=== PATIENT | male | born 1930 | race Caucasian/White ===

== ENCOUNTER 2017-07-01 20:44 | Emergency (ER) | payer OTHER ==
[~2017-07-01 20:44] MED LIST: 1-ME1LIQ PO; ASPI81TA82 PO; ATOR10TA PO; CAPT100T PO; CITA20TA4 PO; DOXA1 PO; GLIP5 PO; NAPR250T57 PO; PLAV75TA PO
[2017-07-01 20:46] VITALS: BP 205/95; PULSE 92; RESP 18; TEMP 98.4; O2SAT 95
--- NOTE | 2017-07-01 22:02 | RADRPT ---
EXAM DATE/TIME: 07/01/2017 21:13 [facility] COMPARISON: CT THORAX W CONTRAST, September 29, 2015, 14:00. CHEST SINGLE AP, September 30, 2015, 2:55. INDICATIONS : Patient states they had cough and right sided chest pain last night. Complains of still having right sided chest pains. MEDICAL HISTORY : None. SURGICAL HISTORY : None. ENCOUNTER: Initial ACUITY: 3 days PAIN SCORE: 5/10 LOCATION: Right chest FINDINGS: There is a 5 cm medial right upper lung mass. Prior CT in September 2015 had demonstrated a 3 cm spicula juan mass suspicious for malignancy. The remainder of the lungs are clear. The heart is normal in si ze. The central bronchopulmonary markings somewhat limited. Both hemidiaphragms are well delineated . Degenerative changes in the thoracic spine with bridging anterior paravertebral ossification. CONCLUSION: 1. 5 cm right apical mass is larger then on prior CT in 2015, suspicious for malignancy. 2. The remainder of the lungs are clear. No evidence of pneumothorax. Ruben Camejo MD on July 01, 2017 at 21:57 Board Certified Radiologist. This report was verified electronically.
[2017-07-01 22:06] VITALS: BP 157/77; PULSE 67; RESP 18; O2SAT 96
--- NOTE | 2017-07-01 22:25 | PD ---
HPI Chief Complaint: Cold / Flu Symptoms Time Seen by Provider: 22:02 Travel History International Travel<30 days: No Contact w/Intl Traveler<30days: No Traveled to known affect area: No History of Present Illness HPI The patient is a 86-year-old male who presents to the emergency department for cough and pleuritic chest pain. The patient states he developed a cough several days ago, then developed some left-sided pleuritic chest pain was resolved after 24 hours. The patient then awakened 2 nights ago with a coughing spell, developed some right sided chest pain which has been constant. The pain is worse with lying supine, slightly improved with sitting upright, but not exacerbated by coughing or inspiration. He does note the cough is mostly dry nonproductive. He denies any known history of lung carcinoma, does have remote history of tobacco use. The patient denies any fever, chills, sweats, or weight loss. He denies any associated nausea, vomiting, abdominal pain, or diaphoresis. He denies any exertional shortness of breath. PFSH Past Medical History Hx Anticoagulant Therapy: Yes AAA: Yes (SURGICAL REPAIR) Arthritis: Yes Blood Disorders: No Anxiety: Yes Depression: Yes Heart Rhythm Problems: Yes Cancer: Yes (COLON) Cardiovascular Problems: Yes (HTN ) High Cholesterol: Yes Chemotherapy: No Cerebrovascular Accident: No Diabetes: No Diminished Hearing: No Endocrine: No Gastrointestinal Disorders: Yes (HX COLON CA) Genitourinary: No Hepatitis: No Hiatal Hernia: No Hypertension: Yes Immune Disorder: No Implanted Vascular Access Dvce: Yes Musculoskeletal: No Neurologic: Yes (SLIGHT DEMENTIA) Psychiatric: Yes Reproductive: No Respiratory: No Radiation Therapy: No Thyroid Disease: No Tetanus Vaccination: Unknown Influenza Vaccination: Yes Past Surgical History Abdominal Surgery: Yes (COLON RESECTION (2006)/BOWEL OBSTRUCTION) AICD: No Arteriovenous Shunt: No Body Medical Devices: HARDWARE LEFT KNEE Cardiac Surgery: No Genitourinary Surgery: Yes (HEMMORROIDS) Insulin Pump: No Joint Replacement: Yes (LEFT KNEE) Pacemaker: No Thoracic Surgery: Yes (ANEURYSM REPAIR (1999)) Other Surgery: Yes Social History Alcohol Use: Yes (OCCASIONALLY) Tobacco Use: No Substance Use: No Allergies-Medications (Allergen,Severity, Reaction): Coded Allergies: No Known Allergies (Verified Allergy, Unknown, 07/01/17) Reported Meds & Prescriptions Reported Meds & Active Scripts Active Naprosyn (Naproxen) 250 Mg Tab 250 Mg PO Q8HR PRN Reported Aspir-81 (Aspirin) 81 Mg Tab 81 Mg PO DAILY Captopril 100 mg (Captopril) 100 Mg Tab 50 Mg PO BID Atorvastatin 10 mg (Atorvastatin Calcium) 10 Mg Tab 10 Mg PO DAILY Glipizide 5 Mg Tab 2.5 Mg PO DAILY Plavix (Clopidogrel Bisulfate) 75 Mg Tab 75 Mg PO DAILY Amlodipine Besylate 10 mg (Amlodipine Besylate) 10 Mg Tab 10 Mg PO DAILY Citalopram Hydrobromide 20 Mg Tab 20 Mg PO DAILY Doxazosin Mesylate 4 Mg Tab 4 Mg PO HS Review of Systems Except as stated in HPI: all other systems reviewed are Neg General / Constitutional: No: Fever, Weight Loss HENT: No: Lightheadedness Cardiovascular: Positive: Chest Pain or Discomfort, No: Diaphoresis Respiratory: Positive: Cough, No: Shortness of Breath, Pleuritic Pain Gastrointestinal: No: Nausea, Vomiting, Abdominal Pain Neurologic: No: Weakness, Dizziness Physical Exam Narrative GENERAL: Awake, alert, pleasant 86-year-old male who appears his stated age and is in no acute respiratory distress. SKIN: Focused skin assessment warm/dry. HEAD: Atraumatic. Normocephalic. EYES: No injection or drainage. ENT: No nasal bleeding or discharge. Mucous membranes pink and moist. NECK: Trachea midline. No JVD. CARDIOVASCULAR: Regular rate and rhythm. No murmur appreciated. Heart rate in the 60s. Palpation of right chest wall does reproduce pain. RESPIRATORY: No accessory muscle use. Clear to auscultation. Breath sounds equal bilaterally. GASTROINTESTINAL: Abdomen soft, non-tender, nondistended. No rebound tenderness. MUSCULOSKELETAL: No obvious deformities. No clubbing. No cyanosis. No edema. NEUROLOGICAL: Awake and alert. No obvious cranial nerve deficits. Motor grossly within normal limits. Normal speech. PSYCHIATRIC: Appropriate mood and affect; insight and judgment normal. Data Data Last Documented VS Vital Signs Date Time Temp Pulse Resp B/P (MAP) Pulse Ox O2 Delivery O2 Flow Rate FiO2 07/01/17 22:06 67 18 157/77 (103) 96 Room Air 07/01/17 20:46 98.4 Orders Orders Chest, Pa & Lat (07/01/17 ) Electrocardiogram (07/01/17 22:20) Ckmb (Isoenzyme) Profile (07/01/17 22:20) Complete Blood Count With Diff (07/01/17 22:20) Comprehensive Metabolic Panel (07/01/17 22:20) Magnesium (Mg) (07/01/17 22:20) Prothrombin Time / Inr (Pt) (07/01/17 22:20) Act Partial Throm Time (Ptt) (07/01/17 22:20) Troponin I (07/01/17 22:20) Ecg Monitoring (07/01/17 22:20) Iv Access Insert/Monitor (07/01/17 22:20) Oximetry (07/01/17 22:20) Aspirin Chew (Aspirin Chew) (07/01/17 22:30) Sodium Chloride 0.9% Flush (Ns Flush) (07/01/17 22:30) Sodium Chlorid 0.9% 500 Ml Inj (Ns 500 M (07/01/17 22:30) Ct Thorax/ Chest W Iv Contrast (07/01/17 ) Iohexol 350 Inj (Omnipaque 350 Inj) (07/01/17 23:25) Ed Discharge Order (07/01/17 23:57) Labs Laboratory Tests Test 07/01/17 20:25 White Blood Count 6.6 TH/MM3 Red Blood Count 5.00 MIL/MM3 Hemoglobin 14.2 GM/DL Hematocrit 41.7 % Mean Corpuscular Volume 83.5 FL Mean Corpuscular Hemoglobin 28.3 PG Mean Corpuscular Hemoglobin Concent 33.9 % Red Cell Distribution Width 14.4 % Platelet Count 162 TH/MM3 Mean Platelet Volume 7.3 FL Neutrophils (%) (Auto) 66.1 % Lymphocytes (%) (Auto) 19.5 % Monocytes (%) (Auto) 8.9 % Eosinophils (%) (Auto) 4.5 % Basophils (%) (Auto) 1.0 % Neutrophils # (Auto) 4.4 TH/MM3 Lymphocytes # (Auto) 1.3 TH/MM3 Monocytes # (Auto) 0.6 TH/MM3 Eosinophils # (Auto) 0.3 TH/MM3 Basophils # (Auto) 0.1 TH/MM3 CBC Comment DIFF FINAL Differential Comment Prothrombin Time 10.6 SEC Prothromb Time International Ratio 1.0 RATIO Activated Partial Thromboplast Time 26.6 SEC Blood Urea Nitrogen 16 MG/DL Creatinine 0.93 MG/DL Random Glucose 107 MG/DL Total Protein 7.0 GM/DL Albumin 3.8 GM/DL Calcium Level 8.6 MG/DL Magnesium Level 2.0 MG/DL Alkaline Phosphatase 117 U/L Aspartate Amino Transf (AST/SGOT) 22 U/L Alanine Aminotransferase (ALT/SGPT) 32 U/L Total Bilirubin 0.4 MG/DL Sodium Level 142 MEQ/L Potassium Level 3.7 MEQ/L Chloride Level 107 MEQ/L Carbon Dioxide Level 28.4 MEQ/L Anion Gap 7 MEQ/L Estimat Glomerular Filtration Rate 77 ML/MIN Total Creatine Kinase 91 U/L Troponin I 0.02 NG/ML MDM Medical Decision Making Medical Screen Exam Complete: Yes Emergency Medical Condition: Yes Medical Record Reviewed: Yes Interpretation(s) EKG reveals normal sinus rhythm with first-degree AV block, PA interval of 324 ms. Right bundle-branch block with RSR prime in V1 and QRS of 126 ms. Last Impressions Chest X-Ray 07/01/17 0000 Signed Impressions: Service Date/Time: Saturday, July 01, 2017 21:13 - CONCLUSION: 1. 5 cm right apical mass is larger then on prior CT in 2016, suspicious for malignancy. 2. The remainder of the lungs are clear. No evidence of pneumothorax. Ruben Camejo MD Laboratory Tests Test 07/01/17 20:25 White Blood Count 6.6 TH/MM3 Red Blood Count 5.00 MIL/MM3 Hemoglobin 14.2 GM/DL Hematocrit 41.7 % Mean Corpuscular Volume 83.5 FL Mean Corpuscular Hemoglobin 28.3 PG Mean Corpuscular Hemoglobin Concent 33.9 % Red Cell Distribution Width 14.4 % Platelet Count 162 TH/MM3 Mean Platelet Volume 7.3 FL Neutrophils (%) (Auto) 66.1 % Lymphocytes (%) (Auto) 19.5 % Monocytes (%) (Auto) 8.9 % Eosinophils (%) (Auto) 4.5 % Basophils (%) (Auto) 1.0 % Neutrophils # (Auto) 4.4 TH/MM3 Lymphocytes # (Auto) 1.3 TH/MM3 Monocytes # (Auto) 0.6 TH/MM3 Eosinophils # (Auto) 0.3 TH/MM3 Basophils # (Auto) 0.1 TH/MM3 CBC Comment DIFF FINAL Differential Comment Prothrombin Time 10.6 SEC Prothromb Time International Ratio 1.0 RATIO Activated Partial Thromboplast Time 26.6 SEC Blood Urea Nitrogen 16 MG/DL Creatinine 0.93 MG/DL Random Glucose 107 MG/DL Total Protein 7.0 GM/DL Albumin 3.8 GM/DL Calcium Level 8.6 MG/DL Magnesium Level 2.0 MG/DL Alkaline Phosphatase 117 U/L Aspartate Amino Transf (AST/SGOT) 22 U/L Alanine Aminotransferase (ALT/SGPT) 32 U/L Total Bilirubin 0.4 MG/DL Sodium Level 142 MEQ/L Potassium Level 3.7 MEQ/L Chloride Level 107 MEQ/L Carbon Dioxide Level 28.4 MEQ/L Anion Gap 7 MEQ/L Estimat Glomerular Filtration Rate 77 ML/MIN Total Creatine Kinase 91 U/L Troponin I 0.02 NG/ML CT of the thorax with contrast reveals a large 4.8 cm right upper lobe mass with adenopathy in the mediastinum thought to represent a primary lung malignancy with metastatic adenopathy. Minimal increased density in the superior segment of the left lower lobe likely related to mild atelectasis or consolidation. Differential Diagnosis Differential diagnosis includes bronchitis, pneumonia, pleurisy, pneumothorax, lung mass, lung carcinoma, shingles, pleural effusion. Narrative Course IV was established, labs are drawn and sent, and the patient was placed on cardiac telemetry monitoring and continuous pulse oximetry monitoring. Chest x- ray reveals a 5 cm platelet of mass the right upper lung, I do discussion with patient regarding previous CT which revealed a mass, he never did follow-up. He does have a history of remote tobacco use, may be lung carcinoma causing his pleuritic/right sided chest wall pain. Therefore, CT of the thorax with IV contrast was ordered. The patient was given aspirin orally in the emergency department. The patient's CT of the thorax reveals a large 4.8 cm right upper lobe mass with adenopathy in the mediastinum thought to represent a primary lung malignancy with metastatic adenopathy. I had a discussion with the patient regarding 23 hour observation for possible biopsy and initial workup versus outpatient follow-up. I told the patient that most likely he has lung carcinoma, may be the cause of his cough and right sided pains. I offered the patient 23 hour observation for possible interventional radiology biopsy and evaluation by medical oncology and radiation oncology. However, the patient states he does not want any current treatment, once a couple days to think about his options. He will be provided a copy of his CT results and lab results at discharge. I encouraged him strongly to follow-up with his primary physician if he wishes to undergo treatment for biopsy and referral to medical/ radiation oncology. I also advised the patient he can return at any time if symptoms worsen or progress. Diagnosis Primary Impression: Right upper lobe spiculated mass Patient Instructions: General Instructions Additional Instructions: Please provide the patient a copy of his CT results and lab results at discharge. Follow-up with your primary physician immediately. Return if symptoms worsen or progress. Disposition: 01 DISCHARGE HOME Condition: Stable Eldon Caceres MD Jul 01, 2017 22:25
[2017-07-01] MEDS ORDERED: SODIUM CHLORIDE 0.9% FLUSH 10 ML FLUSH IVF PRN (22:30)
[2017-07-01] MEDS ORDERED: ASPIRIN 81 MG CHEW TAB PO ONE (22:30)
[2017-07-01] MEDS ORDERED: SODIUM CHLORID 0.9% 500 ML INJ 500 ML IV ONE (22:30)
[2017-07-01 22:39] LABS: AUTOMATED NEUTROPHIL # 4.4 TH/MM3 (1.8-7.7); BASOPHIL # 0.1 TH/MM3 (0-0.2); EOSINOPHIL # 0.3 TH/MM3 (0-0.4); EOSINOPHIL % 4.5 % (0.0-4.0); HEMATOCRIT 41.7 % (39.0-51.0); HEMOGLOBIN 14.2 GM/DL (13.0-17.0); LYMPH % 19.5 % (9.0-44.0); LYMPHOCYTE # 1.3 TH/MM3 (1.0-4.8); MEAN CELL VOLUME 83.5 FL (80.0-100.0); MEAN CORPUSCULAR HEMOGLOBIN 28.3 PG (27.0-34.0); MEAN CORPUSCULAR HGB CONC 33.9 % (32.0-36.0); MEAN PLATELET VOLUME 7.3 FL (7.0-11.0); MONO % 8.9 % (0.0-8.0); MONOCYTE # 0.6 TH/MM3 (0-0.9); NEUT % 66.1 % (16.0-70.0); PLATELET COUNT 162 TH/MM3 (150-450); RED CELL DISTRIBUTION WIDTH 14.4 % (11.6-17.2); WHITE BLOOD COUNT 6.6 TH/MM3 (4.0-11.0)
[2017-07-01 22:51] LABS: PROTHROMBIN TIME - PATIENT 10.6 SEC (9.8-11.6)
[2017-07-01 22:53] LABS: ALBUMIN 3.8 GM/DL (3.4-5.0); ALT (GPT) 32 U/L (12-78); AST (GOT) 22 U/L (15-37); BICARBONATE 28.4 MEQ/L (21.0-32.0); BLOOD UREA NITROGEN 16 MG/DL (7-18); CALCIUM 8.6 MG/DL (8.5-10.1); CHLORIDE 107 MEQ/L (98-107); CREATININE 0.93 MG/DL (0.60-1.30); GLOMERULAR FILTRATION RATE 77 ML/MIN (>89); GLUCOSE,RANDOM 107 MG/DL (74-106); SODIUM (NA) 142 MEQ/L (136-145)
[2017-07-01 22:58] LABS: ALKALINE PHOSPHATASE 117 U/L (45-117); TOTAL BILIRUBIN ADULT 0.4 MG/DL (0.2-1.0); TROPONIN I 0.02 NG/ML (0.02-0.05)
[2017-07-01] MEDS ORDERED: IOHEXOL 350 MG/ML 10 ML VIAL (for RAD DIAG) IVCONTRAST ONE (23:25)
--- NOTE | 2017-07-01 23:46 | RADRPT ---
EXAM DATE/TIME: 07/01/2017 23:20 [facility] COMPARISON: CHEST PA & LAT, July 01, 2017, 21:13. CT THORAX W CONTRAST, September 29, 2015, 14:00. INDICATIONS : Chest pain. IV CONTRAST: 75 cc Omnipaque 350 (iohexol) IV RADIATION DOSE: 5.45 CTDIvol (mGy) MEDICAL HISTORY : Aneurysm, abdominal. Hypertension. Colon cancer. SURGICAL HISTORY : Abdominal aortic aneurysm repair. Colon resection. ENCOUNTER: Initial ACUITY: 1 day PAIN SCALE: 8/10 LOCATION: Bilateral chest TECHNIQUE: Volumetric scanning of the chest was performed. Using automated exposure control and adjustment of t he mA and/or kV according to patient size, radiation dose was kept as low as reasonably achievable to obtain optimal diagnostic quality images. DICOM format image data is available electronically for review and comparison. Follow-up recommendations for detected pulmonary nodules are based at a minimum on nodule size and pa tient risk factors according to Fleischner Society Guidelines. FINDINGS: LUNGS: There is a large 4.8 cm irregular mass in the superior-medial right upper lung almost certainly repre senting a lung neoplasm. This mass abuts the superior right lateral mediastinum There is some minimal increased parenchymal density in the superior segment of the left lower lobe likely representing berhane e mild consolidation. PLEURA: There is no pleural thickening or pleural effusion. MEDIASTINUM: There is adenopathy in the right tracheobronchial, precarinal, subcarinal, and AP window regions. The adenopathy measures up to 1.8 cm. Atherosclerotic calcifications are seen throughout the arterial sy stem including the coronary arteries. AXILLAE: Within normal limits. No lymphadenopathy. SKELETAL: Within normal limits for patient age. MISCELLANEOUS: The visualized upper abdominal organs demonstrate no acute abnormality. There is a mild hiatal hernia . CONCLUSION: 1. Large 4.8 cm right upper lobe mass with adenopathy in the mediastinum thought to represent a prima ry lung malignancy with metastatic adenopathy. 2. Minimal increased density in the superior segment of the left lower lobe likely related to mild at electasis or consolidation. Ashish Sánchez MD on July 01, 2017 at 23:35 Board Certified Radiologist. This report was verified electronically.
--- NOTE | 2017-07-02 14:06 | EKG ---
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
== END 2017-07-02 00:15 | disposition home or self-care (01) ==
LOC: NEPE 20:44
DX: R91.8 Other nonspecific abnormal finding of lung field (principal); R59.0 Localized enlarged lymph nodes; I44.0 Atrioventricular block, first degree; I45.10 Unspecified right bundle-branch block; R94.31 Abnormal electrocardiogram [ECG] [EKG]; I10 Essential (primary) hypertension; E78.00 Pure hypercholesterolemia, unspecified; F41.9 Anxiety disorder, unspecified; F03.90 Unspecified dementia, unspecified severity, without behavioral disturbance, psychotic disturbance, mood disturbance, and anxiety
CPT/HCPCS: 71020; 71260; 80053; 82550; 83735; 84484; 85025; 85610; 85730; 93005; 99285; J7040; Q9967